=== PATIENT | male | born 1970 | race Caucasian/White ===

== ENCOUNTER 2017-03-16 10:33 | Emergency (ER) | payer BC ==
[~2017-03-16] VITALS: Ht 172.7 cm; Wt 84.6 kg
[2017-03-16] MEDS ORDERED: NAPROSYN500 MG PO (13:23)
[2017-03-16] MEDS ORDERED: FLEXERIL10 MG PO (13:23)
[2017-03-16 13:36] VITALS: BP 128/96
== END 2017-03-16 13:38 | disposition home or self-care (01) ==
LOC: EME 10:33
DX: M62.830 Muscle spasm of back (principal); M54.5 Low back pain; F17.200 Nicotine dependence, unspecified, uncomplicated
CPT/HCPCS: 72131; 99281; 99284; J1885